=== PATIENT | male | born 1975 | race Caucasian/White ===

== ENCOUNTER 2016-12-03 13:56 | Emergency (ER) | payer BC ==
[2016-12-03 14:31] VITALS: BP 129/86
== END 2016-12-03 16:18 | disposition left against medical advice (07) ==
LOC: ER 13:56
DX: Z53.21 Procedure and treatment not carried out due to patient leaving prior to being seen by health care provider (principal)

== ENCOUNTER 2017-12-27 13:57 | Emergency (ER) | payer SELFPAY ==
[2017-12-27 14:03] VITALS: BP 162/108
[2017-12-27] MEDS ORDERED: TETRACAINE HCL 150 DROP BTL ONE (14:15)
--- NOTE | 2017-12-27 15:02 | ERNOTE ---
[facility] Date of Service: 12/27/17 Presenting Symptoms: eye pain Time Seen by Provider: 12/27/17 14:06 Source: patient, RN notes reviewed Exam Limitations: no limitations - Immun/Allergies/Home Medications Immunizations: IMMUNIZATION HX Immunizations Up to Date Yes History of Influenza Vaccine No Hx Pneumococcal Vaccination No Allergies/Adverse Reactions: Allergies Allergy/AdvReac Type Severity Reaction Status Date / Time naproxen sodium [From Aleve] Allergy Verified 12/27/17 14:03 venom-honey bee Allergy Verified 12/27/17 14:03 [bee venom (honey bee)] Home Medications: HOME MEDICATIONS Tobramycin/Dexamethasone [Tobradex Eye Drops] 2 drop LEFTEYE Q4H #1 bottle 12/27 [Last Taken Unknown] oxyCODONE HCL/ACETAMINOPHEN [Percocet 5 MG/325 MG] 1 - 2 tab PO Q6H PRN #16 tab 12/27/17 [Last Taken Unknown] - History of Present Illness Narrative: Marco is a 42 year old male who presents to the ED for left eye pain, redness and tearing. This began 3 days ago. He had been using a external grinder tender but did was not aware of getting anything in his eye at the time. He reports having a tetanus vaccination approximately 2 years ago. He states that this happened at home. He does not wear glasses or contacts. ENT Location: Present: eye (L) Prearrival Treatment: Present: no prearrival treatment Prior Treament: Reports: similar symptoms before. Denies: recently seen Review of Systems - Review of Systems Constitutional: Absent: recent illness, fever, chills EYE: Present: eye pain, blurred vision, vision changes, tearing ENT: Absent: ear pain, nose congestion, sore throat Respiratory: Absent: shortness of breath, cough Cardiology: Present: no symptoms reported Gastrointestinal/Abdominal: Absent: nausea, vomiting Genitourinary: Present: no symptoms reported Musculoskeletal: Present: no symptoms reported Skin: Absent: rash, lesions Neurological: Absent: headache, dizziness/light-headedness Endocrine: Present: no symptoms reported Hematologic/Lymphatic: Absent: easy bruising, easy bleeding Psych: Present: no symptoms reported - Patient's Past Medical History Patient History - Medical: No pertinent hx Patient History - Cardiac/Respiratory: No pertinent hx Patient History - Cancer: No Hx of Cancer Patient History - Surgical Procedures: Cholecystectomy, Other Patient History - Other: None - Family History Mother Family History - Medical: No pertinent hx Father Family History - Medical: No pertinent hx - Social History Living Situations: home Abuse History: No History of abuse Psych History: Hx of Anxiety, Hx of Depression Smoking Status: Current every day smoker Have you smoked in the past 12 months: Yes Do you dip or chew tobacco: No Alcohol Use: none Drug Use: none - Immunizations Immunizations Up to Date: Yes Hx Pneumococcal Vaccination: No History of Influenza Vaccine: No Physical Exam - Physical Exam General Appearance: Present: wd/wn, alert, mild distress Head Exam: Present: normal inspection, no evidence of injury Eye Exam: Normal inspection: right, PERRL: bilateral, EOMI: bilateral, Eyelid inflammation: left - mild erythema/edema upper and lower, Photophobia: left, Other: left - moderate conjunctival injection Ears, Nose, Throat: Present: normal ENT inspection, normal pharynx Neck: Present: normal inspection, nontender, supple Respiratory: Present: no respiratory distress, normal breath sounds, lungs clear Cardiovascular/Chest: Present: regular rate, rhythm, no murmur, normal peripheral pulses Neurological Exam: Present: alert, oriented, normal mood/affect, no motor/ sensory deficits Skin Exam: Present: normal color, warm/dry ED Progress - Vital Signs Patient's Vital Signs:: I have reviewed the patient's vital signs. Vital Signs: Vital Signs 12/27/17 13:58 Temperature 36.4 C L Pulse Rate 89 Respiratory 16 Rate Blood Pressure 162/108 O2 Sat by Pulse 99 Oximetry - Progress/Reassessment Chief Complaint: Eye Injury/Trauma Progress:: Improved Procedures Eye Location: left eye Eyes - Both: 1 - Foreign body Tetracaine Drops Administered: Yes Eye FB Removal: no removal w/ cotton swab - unsuccessful, no removal w/ needle - unsuccessful, other - opthalmic hortencia used - no rust ring Complications: Pt adriana procedure well Departure Clinical Impression: Corneal foreign body Qualifiers: Encounter type: initial encounter Laterality: left Qualified Code(s): T15.02XA - Foreign body in cornea, left eye, initial encounter - Departure Disposition: Home Follow Up Needed Condition: Stable Instructions: Eye Foreign Body, [id number] Additional Instructions: See an eye doctor next week for recheck 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
== END 2017-12-27 14:38 | disposition home or self-care (01) ==
LOC: ER 13:57
PROC: 08C9XZZ Extirpation of Matter from Left Cornea, External Approach (ICD-10-PCS; principal; 2017-12-27)
DX: T15.02XA Foreign body in cornea, left eye, initial encounter (principal); F17.200 Nicotine dependence, unspecified, uncomplicated; W29.8XXA Contact with other powered hand tools and household machinery, initial encounter; Y93.89 Activity, other specified; Y92.009 Unspecified place in unspecified non-institutional (private) residence as the place of occurrence of the external cause